=== PATIENT | female | born 1985 | race Caucasian/White ===

== ENCOUNTER 2016-07-30 11:02 | Emergency (ER) | payer MEDICAID ==
[~2016-07-30 11:02] MED LIST: LAMO100 PO; PREN0.01 PO
--- NOTE | 2016-07-30 11:53 | PD ---
HPI Travel History International Travel<30 Days: No Contact w/Intl Traveler<30Days: No Known Affected Area: No History of Present Illness HPI This patient is a 30-year-old 2 para 1001 EDC is September 27, 2016 31 weeks and 5 days she presents with the chief complaint of pelvic pressure and sharp pain in the groin and lower abdomen she says she's been having this for about 3 or 4 days it intermittent in nature however last night it increased Did have sexual intercourse this morning No fever no chills no nausea no vomiting no diarrhea or constipation no dysuria she does have hesitancy care with Dr. 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 7 oz. vaginal delivery uncomplicated Past Surgical History Narrative Surgical Laparoscopy for ovarian cyst Family History Family History: Negative Social History Alcohol Use: No Tobacco Use: No Substance Abuse: No Allergies-Medications (Allergen,Severity, Reaction): Coded Allergies: Codeine (Verified Adverse Reaction, Severe, N/V, 04/03/16) Home Meds Reported Medications Vitamins 1 Tab PO HS 01/31/16 Lamotrigine (Lamictal)100 Mg [id number] Mg PO DAILY 04/17/15 Review of Systems Gastrointestinal: Abdominal Pain (as per history of present illness) Physical Exam Narrative GENERAL: Well-nourished, well-developed patient. Alert oriented 3 and cooperative in no acute distress CARDIOVASCULAR: Regular rate and rhythm without murmurs, gallops, or rubs. RESPIRATORY: Breath sounds equal bilaterally. No accessory muscle use. ABDOMEN/GI: Gravid consistent with 31 weeks soft nontender no palpable contractions baby is very active Gravid to [-] weeks size 30-year-old tender over the right and left round ligament Fundal Height: [-] GENITOURINARY: Speculum exam is done no discharge no fluid no blood visually thick and closed External Genitalia: intact and normal in appearance BUS glands: [-] Cervix: [-] Firm posterior long Dilatation: [-] Closed Effacement: [-] 0 Station: [-] Ballotable Presentation: [-] Membranes: [intact Uterine Contractions: [-]0 FHT's: Category: [-]1 Baseline: [-]140 Reactive: [-] + Accelerations up to 170 Variability: [-] Moderate [id number] variability Decels: [-] 0 EXTREMITIES: No cyanosis or edema. 2+ reflexes NEUROLOGICAL: Awake and alert. Motor and sensory grossly within normal limits. Five out of 5 muscle strength in all muscle groups. Normal speech. Data Data Vital Signs Reviewed: Yes (blood pressures 100/57 pulse is 92 temperature is 97.8) MDM Medical Record Reviewed: No Interpretation(s) 30-year-old at 31 weeks and 4 days Not in labor Musculoskeletal pain Rule out UTI Narrative Course / MDM Urinalysis is negative culture not indicated Patient feeling better No contractions Category 1 tracing We'll discharge patient home, limited physical activity, by mouth fluid hydration, kick count, next appointment with Dr. Walker Plan External monitoring By mouth fluid hydration Urinalysis Reevaluation Diagnosis Diagnosis: Primary Impression: 31 weeks gestation of Additional Impression: Pelvic pressure in Qualified Code: O26.892 - Pelvic pressure in , second trimester Disposition: DISCHARGE HOME Condition: Stable Yakelin Mckay MD Jul 30, 2016 11:52
[2016-07-30 12:09] LABS: BACTERIA, URINE RARE /hpf; BLOOD, URINE NEG (NEG); GLUCOSE,URINE NEG (NEG); KETONE, URINE NEG (NEG); NITRITE,URINE NEG (NEG); SQUAMOUS EPITHELIAL CELL URINE 2 /hpf (0-5); URINE COLOR YELLOW (YELLW/STRAW)
[2016-07-30 12:15] LABS: COMMENT (UR) CULT NOT INDICATED; CULTURE IF INDICATED CULT NOT INDICATED
== END 2016-07-30 12:35 | disposition home or self-care (01) ==
LOC: HOBED 11:02
DX: O26.893 Other specified pregnancy related conditions, third trimester (principal); R10.2 Pelvic and perineal pain; R10.30 Lower abdominal pain, unspecified; R39.11 Hesitancy of micturition; Z3A.31 31 weeks gestation of pregnancy
CPT/HCPCS: 81001; 99284

== ENCOUNTER 2016-09-13 19:40 | Inpatient (IN) | payer MEDICAID ==
[~2016-09-13] VITALS: Ht 167.6 cm; Wt 65.8 kg
[2016-09-13] VITALS (41 sets, daily range): BP systolic 106–131; BP diastolic 51–77; PULSE 72–92; RESP 18
[2016-09-13] MEDS ORDERED: LACTATED RINGER'S 1000 ML INJ 1,000 ML IV PRN (20:16)
--- NOTE | 2016-09-13 20:26 | HHI.HP ---
History & Physical H&P OB ED Note (Detail) Patient Name: Amanda Hutson Unit Number: [id number] Date of : 1985 Patient Status: Registered Emergency Room Attending Doctor: Robe Alcaraz MD HPI HPI Chief Complaint Contractions Date Seen: Sep 13, 2016 Time Seen: 20:41 Travel History International Travel<30 Days: No Contact w/Intl Traveler<30Days: No Known Affected Area: No History of Present Illness HPI 30-year-old 2 para 1 at 38 weeks gestation who notes increasing contractions throughout the day. She denies leakage of fluid, bleeding. She has had an uncomplicated course with Dr. Walker. Para: 1 : 2 History (Limited) History Past Medical History Medical History: Denies Significant Hx Past Surgical History Narrative Surgical Laparoscopy for ovarian cyst Family History Family History: Negative Social History Alcohol Use: No Tobacco Use: No Substance Abuse: No Allergies-Medications Allergies-Medications (Allergen,Severity, Reaction): Coded Allergies: Codeine (Verified Adverse Reaction, Severe, N/V, 04/03/16) Home Meds Reported Medications Multivit/Min/Fol Ac/Iron/Pren ( Vit ( Plus)) Tab1 Tab PO HS 01/31/16 Lamotrigine (Lamictal)100 Mg [id number] Mg PO DAILY 04/17/15 ROS Review of Systems Except as stated in HPI: all other systems reviewed are Neg Physical Exam Physical Exam Narrative GENERAL: Well-nourished, well-developed patient. SKIN: Warm and dry. HEAD: Normocephalic and atraumatic. EYES: No scleral icterus. No injection or drainage. ENT: No nasal drainage noted. Mucous membranes pink. Airway patent. NECK: Supple, trachea midline. No JVD. CARDIOVASCULAR: Regular rate and rhythm without murmurs, gallops, or rubs. RESPIRATORY: Breath sounds equal bilaterally. No accessory muscle use. ABDOMEN/GI: Abdomen soft, non-tender, bowel sounds present, no rebound, no guarding Gravid to [-] weeks size Fundal Height: [-] GENITOURINARY: External Genitalia: intact and normal in appearance BUS glands: [-] Cervix: [-] Dilatation: [2-3-] Effacement: [-70] Station: [-1-] Presentation: [Vertex-] Membranes: [intact ] Uterine Contractions: [Every 4-] FHT's: Category: [1-] Baseline: [-] Reactive: [Yes-] Variability: [-] Decels: [-] EXTREMITIES: No cyanosis or edema. BACK: Nontender without obvious deformity. No CVA tenderness. NEUROLOGICAL: Awake and alert. Motor and sensory grossly within normal limits. Five out of 5 muscle strength in all muscle groups. Normal speech. Data Data Data Orders Admit To Inpatient (09/13/16 ) Code Status (09/13/16 20:16) Vital Signs (Adult) .Per protocol (09/13/16 20:16) ^ Heart (09/13/16 20:16) ^ Amnioinfusion (09/13/16 20:16) Urinary Catheter Management .ONCE (09/13/16 20:16) Lactated Ringer's 1000 Ml Inj (Lr 1000 M (09/13/16 20:16) Lactated Ringer's 1000 Ml Inj (Lr 1000 M (09/13/16 20:16) Sodium Chlorid 0.9% 500 Ml Inj (Ns 500 M (09/13/16 20:30) Sodium Chlor 0.9% 1000 Ml Inj (Ns 1000 M (09/13/16 20:36) Lidocaine 1% Inj (50 Ml) (Xylocaine 1% I (09/13/16 20:30) Citric Acid-Sodium Citrate Liq (Bicitra (09/13/16 20:30) Fentanyl Inj (Fentanyl Inj) (09/13/16 20:30) Fentanyl Inj (Fentanyl Inj) (09/13/16 20:30) Penicillin G Potassium Inj (Pfizerpen-G (09/13/16 20:30) Penicillin G Potassium Inj (Pfizerpen-G (09/14/16 00:30) Complete Blood Count With Diff (09/13/16 20:16) Hold Clot (09/13/16 20:16) Abo/Rh Blood Type (09/13/16 20:16) Urinalysis - C+S If Indicated (09/13/16 20:16) Resp Oxygen Non Rebreathe Mask (09/13/16 ) ^ Epidural / Intrathecal Infus (09/13/16 20:16) Oxytocin 30 Units-500ml Premix (Pitocin (09/13/16 20:30) Lidocaine 1% Inj (50 Ml) (Xylocaine 1% I (09/13/16 20:30) Light Mineral Oil (Muri-Lube Oil) (09/13/16 20:30) Inpatient Certification (09/13/16 ) MDM MDM Medical Record Reviewed: Yes Narrative Course / MDM Assessment: 30-year-old at 38 weeks' gestation in early labor Plan: Patient be admitted for labor management Based on her history of positive group B strep in her urine prophylactic antibiotics will be initiated. No record is available for this patient. Robe Alcaraz MD Sep 13, 2016 20:25 Robe Alcaraz MD Sep 13, 2016 20:26
[2016-09-13] MEDS ORDERED: PENICILLIN G POTASSIUM INJ 5,000,000 UNITS in SODIUM CHLORIDE 0.9% INJ 100 ML IV ONE (20:30)
[2016-09-13] MEDS ORDERED: LIDOCAINE HCL 1% 50 ML VIAL INFIL PRN (20:30)
[2016-09-13] MEDS ORDERED: LIDOCAINE HCL 1% 50 ML VIAL I-DERMAL PRN (20:30)
[2016-09-13] MEDS ORDERED: MINERAL OIL 10 ML VIAL TOPICAL PRN (20:30)
[2016-09-13] MEDS ORDERED: SODIUM CHLORID 0.9% 500 ML INJ 500 ML IV PRN (20:30)
[2016-09-13] MEDS ORDERED: OXYTOCIN 30 UNITS-500ML PREMIX 500 ML IV ONE (20:30)
[2016-09-13] MEDS ORDERED: CITRIC ACID-SODIUM CITRATE LIQ 30 ML UDC PO SCH (20:30)
[2016-09-13] MEDS ORDERED: SODIUM CHLOR 0.9% 1000 ML INJ 1,000 ML IV PRN (20:36)
[2016-09-13] MEDS ORDERED: FERR83TA (21:23)
[2016-09-13] MEDS: LACTATED RINGER'S 1000 ML INJ 1,000 ML IV SCH (21:26)
[2016-09-13 21:58] LABS: AUTOMATED NEUTROPHIL # 7.5 TH/MM3 (1.8-7.7); BASOPHIL % 0.4 % (0.0-2.0); EOSINOPHIL # 0.1 TH/MM3 (0-0.4); EOSINOPHIL % 0.7 % (0.0-4.0); HEMATOCRIT 38.9 % (35.0-46.0); HEMO FLAGS DIFF FINAL; LYMPH % 18.7 % (9.0-44.0); LYMPHOCYTE # 1.9 TH/MM3 (1.0-4.8); MEAN CELL VOLUME 89.8 FL (80.0-100.0); MEAN CORPUSCULAR HEMOGLOBIN 31.4 PG (27.0-34.0); MEAN CORPUSCULAR HGB CONC 34.9 % (32.0-36.0); MONO % 5.1 % (0.0-8.0); NEUT % 75.1 % (16.0-70.0); PLATELET COUNT 176 TH/MM3 (150-450); RED BLOOD COUNT 4.34 MIL/MM3 (4.00-5.30); RED CELL DISTRIBUTION WIDTH 13.2 % (11.6-17.2)
[2016-09-13 22:17] LABS: BLOOD, URINE NEG (NEG); GLUCOSE,URINE NEG (NEG); KETONE, URINE NEG (NEG); NITRITE,URINE NEG (NEG); URINE COLOR LIGHT-YELLOW (YELLW/STRAW)
[2016-09-13 22:24] LABS: COMMENT (UR) CULT NOT INDICATED; CULTURE IF INDICATED CULT NOT INDICATED
[2016-09-13] MEDS ORDERED: fentaNYL 2MCG-BUPIV 0.125% INJ 100 ML ONE (23:24)
[2016-09-14] VITALS (42 sets, daily range): BP systolic 90–121; BP diastolic 51–90; PULSE 68–109; RESP 16–18; TEMP 97.7–98; O2SAT 98–99
[2016-09-14] MEDS: PENICILLIN G POTASSIUM INJ 2,500,000 UNITS in SODIUM CHLORIDE 0.9% INJ 100 ML IV SCH (01:30)
--- NOTE | 2016-09-14 02:22 | PD.OB.DELI ---
Anesthesia: Epidural Episiotomy: None Vaginal Delivery: Normal Presentation: Occiput anterior Nuchal Cord: None Delayed cord clamping (45 sec): Yes Infant: Male One Minute : 9 Five Minute : 9 Weight: 7 Care: Suctioned, Spontaneous crying Placenta: Manual removal, Intact, Uterus explored +, 3 vessel cord, Other ( velamentous insertion Got two doses of PCN G for GBS prophylaxis) Amanda Hinkle MD Sep 14, 2016 02:22
[2016-09-14] MEDS ORDERED: BENZOCAINE 20% TOPICAL SPRAY 60 ML CAN TOPICAL PRN (02:30)
[2016-09-14] MEDS ORDERED: ONDANSETRON ODT 4 MG TAB PO PRN (02:30)
[2016-09-14] MEDS ORDERED: ALUMINUM/MAGNESIUM/SIMETH 30 ML CUP PO PRN (02:30)
[2016-09-14] MEDS ORDERED: DOCUSATE SODIUM 50 MG/SENNA 8.6 MG TAB PO PRN (02:30)
[2016-09-14] MEDS ORDERED: ZOLPIDEM TARTRATE 5 MG TAB PO PRN (02:30)
[2016-09-14] MEDS ORDERED: WITCH HAZEL 50%/GLYCERIN 12.5% 40 PAD JAR TOPICAL PRN (02:30)
[2016-09-14] MEDS ORDERED: SODIUM CHLORIDE 0.9% FLUSH 5 ML FLUSH IV PRN (02:30)
[2016-09-14] MEDS: IBUPROFEN 600 MG TAB PO PRN ×3 (08:29→22:42)
[2016-09-14] MEDS ORDERED: SODIUM CHLORIDE 0.9% FLUSH 5 ML FLUSH IV SCH (09:00)
--- NOTE | 2016-09-14 11:07 | HHI.OB ---
Subjective Post Day: 0 Remarks doing well no complaints Objective Vitals/I&O Vital Signs Date Time Temp Pulse Resp B/P Pulse Ox O2 Delivery O2 Flow Rate FiO2 09/14/16 08:15 77 96/61 09/14/16 08:15 97.7 16 09/14/16 04:50 97.9 18 98 09/14/16 04:50 79 99/63 09/14/16 04:00 79 103/90 09/14/16 03:55 18 09/14/16 03:45 84 108/65 09/14/16 03:30 86 106/72 09/14/16 03:15 79 104/70 09/14/16 03:15 18 09/14/16 03:01 94 101/60 09/14/16 03:00 18 09/14/16 02:45 93 119/64 09/14/16 02:30 18 09/14/16 02:30 89 90/61 09/14/16 02:30 98.0 09/14/16 02:15 95 119/72 09/14/16 02:05 88 09/14/16 02:01 87 101/66 09/14/16 02:00 93 09/14/16 01:55 86 09/14/16 01:50 80 09/14/16 01:49 109 100/67 09/14/16 01:46 79 91/51 09/14/16 01:45 90 09/14/16 01:35 88 09/14/16 01:30 70 112/64 09/14/16 01:30 72 09/14/16 01:25 73 09/14/16 01:20 69 09/14/16 01:15 77 09/14/16 01:15 82 108/59 09/14/16 01:10 80 09/14/16 01:05 88 09/14/16 01:05 85 107/63 09/14/16 01:00 74 110/64 09/14/16 01:00 73 09/14/16 00:55 83 09/14/16 00:55 71 109/61 09/14/16 00:50 75 104/65 09/14/16 00:50 85 09/14/16 00:45 84 110/61 09/14/16 00:45 75 09/14/16 00:40 72 108/64 09/14/16 00:40 72 09/14/16 00:35 71 09/14/16 00:35 79 105/67 09/14/16 00:30 68 108/61 09/14/16 00:30 98.0 18 09/14/16 00:30 69 09/14/16 00:25 80 09/14/16 00:25 70 100/55 09/14/16 00:20 69 104/57 09/14/16 00:20 73 09/14/16 00:15 68 09/14/16 00:15 84 109/58 09/14/16 00:10 79 09/14/16 00:10 76 121/60 09/14/16 00:05 72 112/64 09/14/16 00:05 79 09/14/16 00:01 91 105/53 09/14/16 00:00 88 09/14/16 00:00 88 09/13/16 23:55 81 09/13/16 23:55 82 106/51 09/13/16 23:55 78 09/13/16 23:50 88 117/61 09/13/16 23:50 92 09/13/16 23:50 77 09/13/16 23:45 88 09/13/16 23:45 89 09/13/16 23:45 86 114/64 09/13/16 23:40 83 09/13/16 23:40 83 120/77 09/13/16 23:40 83 09/13/16 23:38 90 131/74 09/13/16 23:35 87 09/13/16 23:30 78 09/13/16 23:25 77 09/13/16 23:20 79 09/13/16 23:10 86 09/13/16 23:05 76 09/13/16 23:00 80 09/13/16 22:55 80 09/13/16 22:50 74 09/13/16 22:45 78 09/13/16 22:40 72 09/13/16 22:35 75 09/13/16 22:30 78 09/13/16 22:25 83 09/13/16 22:20 76 09/13/16 22:15 79 09/13/16 22:10 77 09/13/16 22:00 81 09/13/16 21:55 74 09/13/16 21:50 84 09/13/16 21:45 80 09/13/16 21:40 80 09/13/16 21:35 84 09/13/16 21:30 74 09/13/16 21:25 89 09/13/16 21:20 79 09/13/16 21:15 78 09/13/16 21:10 83 09/13/16 21:05 84 09/13/16 21:00 18 09/13/16 21:00 78 09/13/16 20:55 86 09/13/16 20:53 90 108/76 09/13/16 20:50 79 09/13/16 20:45 83 09/13/16 20:40 86 09/13/16 20:15 81 Objective Remarks GENERAL: Well-nourished, well-developed patient. CARDIOVASCULAR: Regular rate and rhythm without murmurs, gallops, or rubs. RESPIRATORY: Breath sounds equal bilaterally. No accessory muscle use. ABDOMEN/GI: Abdomen soft, non-tender. Fundus: Firm, non-tender at umbilicus. GENITOURINARY: Light to moderate bleeding. EXTREMITIES: No cyanosis or edema, non-tender, without signs of DVT. Medications and IVs Current Medications Medications (Trade) Dose Ordered Sig/Melony Route Start Time Stop Time Status Last Admin Lactated Ringer's 1,000 ml @ 125 mls/hr Q8H IV 09/13/16 20:16 09/13/16 21:26 Lactated Ringer's 1,000 ml @ 3,000 mls/hr Q20M PRN IV 09/13/16 20:16 Sodium Chloride 500 ml @ 1,000 mls/hr ONCE PRN IV 09/13/16 20:30 09/15/16 20:29 (NS 1000 ml Inj) 1,000 ml @ 100 mls/hr Q10H PRN IV 09/13/16 20:36 (fentaNYL INJ) 50 mcg Q1H PRN IV PUSH 09/13/16 20:30 Fentanyl Citrate 100 mcg 100 mcg Q1H PRN IV PUSH 09/13/16 20:30 (Pfizerpen-G Inj/ NS Inj) 100 ml @ 200 mls/hr Q4H IV 09/14/16 00:30 09/14/16 01:30 (Muri-Lube Oil) 10 ml UNSCH PRN TOPICAL 09/13/16 20:30 (NS Flush) 2 ml BID IV 09/14/16 09:00 (NS Flush) 2 ml UNSCH PRN IV 09/14/16 02:30 (Tylenol) 650 mg Q4H PRN PO 09/14/16 02:30 (Motrin) 600 mg Q6H PRN PO 09/14/16 02:30 09/14/16 08:29 (Americaine 20% Top Spr) 1 spray Q4H PRN TOPICAL 09/14/16 02:30 09/14/16 08:28 (Tucks Pads) 1 applic QID PRN TOPICAL 09/14/16 02:30 09/14/16 08:28 (Latanya-Colace) 2 tab Q12H PRN PO 09/14/16 02:30 (Ambien) 5 mg HS PRN PO 09/14/16 02:30 (M-M-R Ii Inj) 0.5 ml ONCE ONCE SQ 09/14/16 16:00 09/14/16 16:01 (Boostrix Inj) 0.5 ml ONCE ONCE IM 09/14/16 16:00 09/14/16 16:01 (Mag-Al Plus Susp Liq) 15 ml Q8H PRN PO 09/14/16 02:30 (Zofran Odt) 4 mg Q6H PRN PO 09/14/16 02:30 Assessment/Plan Assessment and Plan home on Thursday Amanda Hinkle MD Sep 14, 2016 11:07
[2016-09-14] MEDS: ACETAMINOPHEN 325 MG TAB PO PRN ×2 (14:40→18:39)
[2016-09-14] MEDS ORDERED: DIPHTH/TETANUS/ACEL PERTUSSIS (BOOSTER) 0.5 ML VIAL/PFS IM ONE (16:00)
[2016-09-14] MEDS ORDERED: MEASLES, MUMPS, RUBELLA VACCINE 0.5 ML VIAL SQ ONE (16:00)
[2016-09-15] MEDS: IBUPROFEN 600 MG TAB PO PRN ×3 (06:53→19:35)
[2016-09-15] MEDS: ACETAMINOPHEN 325 MG TAB PO PRN ×3 (06:53→19:35)
--- NOTE | 2016-09-15 07:45 | HHI.OB ---
Subjective Post Day: 1 Remarks doing well, no complaints, bottlefeeding, circ done Objective Vitals/I&O Vital Signs Date Time Temp Pulse Resp B/P Pulse Ox O2 Delivery O2 Flow Rate FiO2 09/14/16 19:45 98.0 78 17 109/68 99 09/14/16 08:15 77 96/61 09/14/16 08:15 97.7 16 Objective Remarks GENERAL: Well-nourished, well-developed patient. CARDIOVASCULAR: Regular rate and rhythm without murmurs, gallops, or rubs. RESPIRATORY: Breath sounds equal bilaterally. No accessory muscle use. ABDOMEN/GI: Abdomen soft, non-tender. Fundus: Firm, non-tender at umbilicus. GENITOURINARY: Light to moderate bleeding. EXTREMITIES: No cyanosis or edema, non-tender, without signs of DVT. Medications and IVs Current Medications Medications (Trade) Dose Ordered Sig/Melony Route Start Time Stop Time Status Last Admin Lactated Ringer's 1,000 ml @ 125 mls/hr Q8H IV 09/13/16 20:16 09/13/16 21:26 Lactated Ringer's 1,000 ml @ 3,000 mls/hr Q20M PRN IV 09/13/16 20:16 Sodium Chloride 500 ml @ 1,000 mls/hr ONCE PRN IV 09/13/16 20:30 09/15/16 20:29 (NS 1000 ml Inj) 1,000 ml @ 100 mls/hr Q10H PRN IV 09/13/16 20:36 (fentaNYL INJ) 50 mcg Q1H PRN IV PUSH 09/13/16 20:30 Fentanyl Citrate 100 mcg 100 mcg Q1H PRN IV PUSH 09/13/16 20:30 (Pfizerpen-G Inj/ NS Inj) 100 ml @ 200 mls/hr Q4H IV 09/14/16 00:30 09/14/16 01:30 (Muri-Lube Oil) 10 ml UNSCH PRN TOPICAL 09/13/16 20:30 (NS Flush) 2 ml BID IV 09/14/16 09:00 (NS Flush) 2 ml UNSCH PRN IV 09/14/16 02:30 (Tylenol) 650 mg Q4H PRN PO 09/14/16 02:30 09/15/16 06:53 (Motrin) 600 mg Q6H PRN PO 09/14/16 02:30 09/15/16 06:53 (Americaine 20% Top Spr) 1 spray Q4H PRN TOPICAL 09/14/16 02:30 09/14/16 08:28 (Tucks Pads) 1 applic QID PRN TOPICAL 09/14/16 02:30 09/14/16 08:28 (Latanya-Colace) 2 tab Q12H PRN PO 09/14/16 02:30 (Ambien) 5 mg HS PRN PO 09/14/16 02:30 (Mag-Al Plus Susp Liq) 15 ml Q8H PRN PO 09/14/16 02:30 (Zofran Odt) 4 mg Q6H PRN PO 09/14/16 02:30 Assessment/Plan Problem List: (1) Vaginal delivery Assessment and Plan PPD #1 home on Thursday Discharge Planning routine Attending Attestation pt seen by Lizet Moreland MD Sep 15, 2016 07:45
[2016-09-15 08:16] VITALS: BP 108/72; PULSE 77; RESP 18; TEMP 98.1
[2016-09-15] MEDS: LACTATED RINGER'S 1000 ML INJ 1,000 ML IV SCH (20:16)
[2016-09-15] MEDS: PENICILLIN G POTASSIUM INJ 2,500,000 UNITS in SODIUM CHLORIDE 0.9% INJ 100 ML IV SCH (20:30)
[2016-09-16] MEDS: PENICILLIN G POTASSIUM INJ 2,500,000 UNITS in SODIUM CHLORIDE 0.9% INJ 100 ML IV SCH ×2 (00:30→04:30)
[2016-09-16] MEDS: IBUPROFEN 600 MG TAB PO PRN (01:36)
[2016-09-16] MEDS: ACETAMINOPHEN 325 MG TAB PO PRN ×2 (01:37→06:06)
[2016-09-16] MEDS: LACTATED RINGER'S 1000 ML INJ 1,000 ML IV SCH (04:16)
[2016-09-16] MEDS ORDERED: IBUP-232 PO (07:48)
--- NOTE | 2016-09-16 07:49 | HHI.DCPOC ---
Discharge Care Plan Report Symptoms to Your Doctor -Temperate above 100.5 degrees -Redness, of incision or excessive or foul smelling drainage -Unusual pain or calf pain -Increased vaginal bleeding -Painful or difficulty urinating -Feelings of extreme sadness or anxiety after 2 weeks Goals to Promote Your Health * To prevent worsening of your condition and complications * To maintain your health at the optimal level Directions to Meet Your Goals Take your medications as prescribed Follow your dietary instruction Follow activity as directed Ensure plenty of rest for recovery Drink fluids for hydration Keep your appointments as scheduled Take your immunizations and boosters as scheduled If your symptoms worsen call your PCP, if no PCP go to Urgent Care Center or Emergency Room Smoking is Dangerous to Your Health. Avoid second hand smoke Call the 24-hour crisis hotline for domestic abuse at Amanda Hinkle MD Sep 16, 2016 07:49
[2016-09-16 08:04] VITALS: BP 111/74
[2016-09-16 08:05] VITALS: PULSE 80; RESP 18; TEMP 98.1
== END 2016-09-16 10:54 | disposition home or self-care (01) | DRG 767 ==
LOC: HOBED 19:40 → H2EB 20:34 → H1EA 09-14 05:58
PROVIDERS: ADMIT Obstetrics & Gynecology; ATTEND Obstetrics & Gynecology
PROC: 3E0S3CZ (ICD-10-PCS; 2016-09-13)
PROC: 00HU33Z Insertion of Infusion Device into Spinal Canal, Percutaneous Approach (ICD-10-PCS; 2016-09-13)
PROC: 10E0XZZ Delivery of Products of Conception, External Approach (ICD-10-PCS; principal; 2016-09-14)
PROC: 10D17ZZ Extraction of Products of Conception, Retained, Via Natural or Artificial Opening (ICD-10-PCS; 2016-09-14)
DX: O99.824 Streptococcus B carrier state complicating childbirth (principal); O43.123 Velamentous insertion of umbilical cord, third trimester; Z37.0 Single live birth; Z3A.38 38 weeks gestation of pregnancy
CPT/HCPCS: 81001; 85025; 86900; 86901; 99285; J2540; J2590; J7120